=== PATIENT | male | born 1950 | race Caucasian/White ===

== ENCOUNTER 2021-04-02 09:37 | Emergency (ER) | payer MEDICARE, OTHER ==
[~2021-04-02] VITALS: Ht 165.1 cm; Wt 136.1 kg
[2021-04-02] MEDS ORDERED: ZYRTEC10 M2 PO (10:40)
[2021-04-02] MEDS ORDERED: K-TAB ER20 ME1 PO (10:40)
[2021-04-02] MEDS ORDERED: Vitamin D1000 UNI1 PO (10:40)
[2021-04-02] MEDS ORDERED: FURO20 PO (10:40)
[2021-04-02] MEDS ORDERED: COMBIVENT RESPIM4 G1 INH (10:41)
[2021-04-02] MEDS ORDERED: ATOR10 PO (10:41)
[2021-04-02] MEDS ORDERED: FISH OIL-VIT D1 EACH PO (10:41)
[2021-04-02] MEDS ORDERED: GUAI600T33 PO (10:42)
[2021-04-02] MEDS ORDERED: FLUT1DIS5 INH (10:42)
[2021-04-02 11:10] LABS: Influenza A, PCR NEGATIVE (NEGATIVE); Influenza B, PCR NEGATIVE (NEGATIVE); Resp Syncytial Virus, PCR NEGATIVE (NEGATIVE); SARS-Cov-2 (COVID-19) PCR, MMC NEGATIVE (NEGATIVE)
[2021-04-02] MEDS ORDERED: Prednisone20 MG PO (12:23)
[2021-04-02] MEDS ORDERED: ALBU2.5V5 INH (12:23)
== END 2021-04-02 13:15 | disposition home or self-care (01) ==
LOC: ER 09:37
PROVIDERS: Physician Assistant
DX: J44.1 Chronic obstructive pulmonary disease with (acute) exacerbation (principal); J06.9 Acute upper respiratory infection, unspecified; Z20.822 Contact with and (suspected) exposure to COVID-19
CPT/HCPCS: 0241U; 71046; 94640; 94760; 99284-25; J7512

== ENCOUNTER → 2021-10-18 | Outpatient (CLI) | payer MEDICARE, OTHER ==
[~2021-10-18] MED LIST: ALBU2.5V5 INH; ATOR10 PO; COMBIVENT RESPIM4 G1 INH; FISH OIL-VIT D1 EACH PO; FLUT1DIS5 INH; FURO20 PO; GUAI600T33 PO; K-TAB ER20 ME1 PO; Prednisone20 MG PO; Vitamin D1000 UNI1 PO; ZYRTEC10 M2 PO
== END ==
LOC: LAB SHORT 07:15 → PLD 07:15
DX: D48.5 Neoplasm of uncertain behavior of skin (principal)
CPT/HCPCS: 88342

== ENCOUNTER → 2022-03-22 | Outpatient (CLI) | payer MEDICARE, OTHER | LOC: LAB 07:15 → LAB SHORT 07:15 | DX: E11.9 Type 2 diabetes mellitus without complications (principal) | CPT/HCPCS: 82043 ==

== ENCOUNTER → 2025-02-14 | Outpatient (CLI) | payer OTHER ==
[2025-02-14 14:37] LABS: BASOPHILS ABSOLUTE AUTO 0.11 K/mm3 (0.00-0.23); BASOPHILS PERCENT AUTO 1 % (0-2); EOSINOPHILS ABSOLUTE AUTO 0.22 K/mm3 (0.00-0.68); EOSINOPHILS PERCENT AUTO 2 % (0-6); Hematocrit 43.2 % (37.0-53.0); Hemoglobin 14.6 g/dL (13.5-17.5); IMMATURE GRAN ABSOLUTE AUTO 0.09 K/mm3 (0.00-0.10); IMMATURE GRAN PERCENT AUTO 1 % (0-1); LYMPHOCYTES ABSOLUTE AUTO 2.79 K/mm3 (0.84-5.20); LYMPHOCYTES PERCENT AUTO 23 % (21-46); MONOCYTES ABSOLUTE AUTO 1.46 K/mm3 (0.16-1.47); MONOCYTES PERCENT AUTO 12 % (4-13); Mean Corpuscular HGB Conc 33.8 g/dL (31.5-36.5); Mean Corpuscular Volume 84 fL (80-100); NEUTROPHILS ABSOLUTE AUTO 7.64 K/mm3 (1.96-9.15); NEUTROPHILS PERCENT AUTO 62 % (41-73); NRBC ABSOLUTE 0.00 K/mm3 (0.00-0.02); NRBC Auto 0.0 /100 WBC (0.0-0.2); Platelet Count 492 K/mm3 (150-400); RDW Coefficient Variation 14.9 % (11.7-14.2); RDW Standard Deviation 45.1 fL (35.1-46.3)
[2025-02-14 14:50] LABS: Alanine Aminotransfer (ALT/SGP 21.0 U/L (12-78); Albumin, Blood 3.9 g/dL (3.4-5.0); Albumin/Globulin Ratio 1.2 (0.8-1.8); Anion Gap 14.0 mmol/L (3-11); Aspartate Aminotrans (AST/SGOT 17.0 U/L (12-37); Bilirubin, Total 0.4 mg/dL (0.1-1.0); Blood Urea Nitrogen 12.0 mg/dL (8-24); CO2, Blood 26.0 mmol/L (21-32); Calcium, Blood 9.0 mg/dL (8.5-10.1); Chloride, Blood 106.0 mmol/L (98-108); Creatinine, Blood 1.32 mg/dL (0.60-1.20); Globulin, Blood 3.3 g/dL (2.2-4.0); Glucose, Blood 99.0 mg/dL (70-99); Potassium, Blood 3.6 mmol/L (3.5-5.5); Sodium, Blood 142.0 mmol/L (136-145); Total Protein, Blood 7.2 g/dL (6.4-8.2)
== END ==
LOC: LAB 14:32 → LAB SHORT 14:32
PROVIDERS: Physician Assistant
DX: R07.9 Chest pain, unspecified (principal)
CPT/HCPCS: 80053; 84484; 85025